=== PATIENT | female | born 1950 | race Caucasian/White ===

== ENCOUNTER 2023-01-25 00:53 | Inpatient (IN) | payer BC, MEDICARE ==
[~2023-01-25] VITALS: Ht 167.6 cm; Wt 59.9 kg
[2023-01-25] MEDS ORDERED: FLUO20CA36 PO (00:59)
[2023-01-25] MEDS ORDERED: ONDANSETRON 4 MG/2 ML VIAL ONE (01:08)
[2023-01-25] MEDS ORDERED: HYDROMORPHONE 1 MG/1 ML DISP.SYRIN ONE ×3 (01:09→03:57)
[2023-01-25] MEDS ORDERED: ONDANSETRON 4 MG/2 ML VIAL IV ONE (01:15)
[2023-01-25] MEDS ORDERED: HYDROMORPHONE 1 MG/1 ML DISP.SYRIN IV ONE ×2 (01:15→05:30)
[2023-01-25] MEDS ORDERED: MORPHINE SULFATE 2 MG/1 ML DISP.SYRIN ONE (09:10)
[2023-01-25] MEDS ORDERED: MORPHINE SULFATE 2 MG/1 ML DISP.SYRIN IV ONE (09:15)
[2023-01-25 11:11] VITALS: BP 106/40; TEMP 98.4; O2SAT 100
[2023-01-25] MEDS ORDERED: IV NORMAL SALINE 500 ML IV ONE ×2 (11:15→14:30)
[2023-01-25] MEDS ORDERED: ACETAMINOPHEN 325 MG TABLET PO PRN (11:15)
[2023-01-25] MEDS ORDERED: REMEDY ESSENTIAL ZINC PASTE 113 GM TP PRN (11:15)
[2023-01-25] MEDS ORDERED: FENTANYL CITRATE 100 MCG/2 ML AMPUL IV ONE (11:15)
[2023-01-25] MEDS ORDERED: ONDANSETRON 4 MG/2 ML VIAL IV PRN (11:15)
[2023-01-25 11:40] LABS: BASOPHILS # (AUTO) 0.2 K/UL (0.0-0.2); BASOPHILS % (AUTO) 1.5 % (0.0-2.0); EOSINOPHILS % (AUTO) 0.2 % (0.0-7.0); HEMATOCRIT 38.7 % (31.2-41.9); HEMOGLOBIN 12.6 g/dL (10.9-14.3); LYMPHOCYTES # (AUTO) 0.5 K/uL (0.8-4.8); LYMPHOCYTES % (AUTO) 4.8 % (20.5-51.5); MEAN CORPUSCULAR HGB CONC 33 g/dL (32.3-35.6); MEAN CORPUSCULAR VOLUME 94.7 fL (75.5-95.3); MONOCYTES # (AUTO) 0.7 K/uL (0.1-1.30); MONOCYTES % (AUTO) 6.4 % (0.0-11.0); NEUTROPHILS # (AUTO) 9.3 K/uL (1.8-8.9); NEUTROPHILS % (AUTO) 87.1 % (38.5-71.5); PLATELET COUNT (AUTO) 237 K/uL (179-408); RED BLOOD CELL COUNT(AUTO) 4.08 MIL/uL (3.63-4.92); WHITE BLOOD COUNT (AUTO) 10.7 K/uL (3.8-11.8)
[2023-01-25 11:42] LABS: DIFFERENTIAL COMMENT 1
[2023-01-25 11:43] LABS: CALCIUM 10.2 mg/dL (8.5-10.1); POTASSIUM 4.9 mmol/L (3.5-5.1)
[2023-01-25 11:48] LABS: ALBUMIN 3.6 g/dL (3.4-5.0); BILIRUBIN,TOTAL 0.4 mg/dL (0.2-1.0); MAGNESIUM 2.5 mg/dL (1.8-2.4); TOTAL PROTEIN, SERUM 6.9 g/dL (6.4-8.2)
[2023-01-25] MEDS ORDERED: IV LACTATED RINGERS SOLUTION 1,000 ML IV PRN (12:00)
[2023-01-25] MEDS ORDERED: LAMO25TA10 PO ×2 (13:56)
[2023-01-25] MEDS ORDERED: ARIP5TAB10 PO (13:56)
[2023-01-25] MEDS ORDERED: TRAZ-257 PO (13:56)
[2023-01-25] MEDS ORDERED: DEXT10TA19 PO (13:56)
[2023-01-25 15:07] VITALS: BP 106/45; TEMP 98.2; O2SAT 100
[2023-01-25 15:37] LABS: *BILIRUBIN,URIN NEGATIVE (NEGATIVE); *BLOOD, URINE NEGATIVE (NEGATIVE); *CLARITY,URINE CLEAR (CLEAR); *KETONES,URINE NEGATIVE (NEGATIVE); *PROTEIN,URINE NEGATIVE (NEGATIVE); *UROBILINOGEN,URINE 0.2 E.U./dl (NORMAL); LEUKOCYTE ESTERASE ,URINE NEGATIVE (NEGATIVE); NITRITE, URINE NEGATIVE (NEGATIVE); UGLUCOSE NEGATIVE (NEGATIVE)
[2023-01-25 15:41] LABS: *COLOR,URINE LIGHT YELLOW (YELLOW)
[2023-01-25] MEDS: MORPHINE SULFATE 2 MG/1 ML DISP.SYRIN IV PRN ×2 (16:14→21:44)
[2023-01-25 20:00] VITALS: BP 93/37; TEMP 97.5; O2SAT 100
[2023-01-25] MEDS: TRAZODONE 100 MG TABLET PO SCH ×2 (20:48→20:53)
[2023-01-25] MEDS: ARIPIPRAZOLE 5 MG TABLET PO SCH (20:48)
[2023-01-25] MEDS: LAMOTRIGINE 25 MG TABLET PO SCH (20:48)
[2023-01-25 21:00] VITALS: BP 108/68; O2SAT 100
[2023-01-26] VITALS (12 sets, daily range): BP systolic 93–114; BP diastolic 28–50; TEMP 97.5–98.5; O2SAT 96–100
[2023-01-26] MEDS: MORPHINE SULFATE 2 MG/1 ML DISP.SYRIN IV PRN ×2 (02:49→08:41)
[2023-01-26 06:17] LABS: BASOPHILS % (AUTO) 0.1 % (0.0-2.0); EOSINOPHILS # (AUTO) 0.1 K/uL (0.0-0.7); EOSINOPHILS % (AUTO) 1.1 % (0.0-7.0); HEMATOCRIT 33.6 % (31.2-41.9); HEMOGLOBIN 11.4 g/dL (10.9-14.3); LYMPHOCYTES # (AUTO) 1.1 K/uL (0.8-4.8); MEAN CORPUSCULAR HEMOGLOBIN 31.8 uug (24.7-32.8); MEAN CORPUSCULAR HGB CONC 34 g/dL (32.3-35.6); MEAN CORPUSCULAR VOLUME 93.4 fL (75.5-95.3); MONOCYTES # (AUTO) 0.6 K/uL (0.1-1.30); MONOCYTES % (AUTO) 8.7 % (0.0-11.0); NEUTROPHILS # (AUTO) 5.3 K/uL (1.8-8.9); NEUTROPHILS % (AUTO) 75.1 % (38.5-71.5); PLATELET COUNT (AUTO) 183 K/uL (179-408); RED BLOOD CELL COUNT(AUTO) 3.59 MIL/uL (3.63-4.92); RED CELL DISTRIBUTION WIDTH 13.5 % (12.3-17.7)
[2023-01-26 06:21] LABS: DIFFERENTIAL COMMENT 1
[2023-01-26 06:37] LABS: CALCIUM 8.7 mg/dL (8.5-10.1); CARBON DIOXIDE 35 mmol/L (21-32); CHLORIDE 106 mmol/L (98-107); CHOLESTEROL 190 mg/dL (<200); CREATININE 0.7 mg/dL (0.6-1.3); GLUCOSE 104 mg/dL (74-106); HDL CHOLESTEROL 73 mg/dL (40-60); MAGNESIUM 2.1 mg/dL (1.8-2.4); POTASSIUM 4.2 mmol/L (3.5-5.1); SODIUM SERUM 135 mmol/L (136-145); TRIGLYCERIDES 71 MG/DL (30-150); UREA NITROGEN, BLOOD 15 mg/dL (7-18)
[2023-01-26] MEDS: LAMOTRIGINE 25 MG TABLET PO SCH ×2 (08:45→21:06)
[2023-01-26] MEDS: FLUOXETINE HCL 20 MG CAPSULE PO SCH (09:00)
[2023-01-26] MEDS ORDERED: VANCOMYCIN 1000 MG VIAL ONE (13:19)
[2023-01-26] MEDS ORDERED: CEFAZOLIN 1 G VIAL ONE (14:00)
[2023-01-26] MEDS ORDERED: PROPOFOL 200 MG/20 ML BOTTLE ONE (14:00)
[2023-01-26] MEDS ORDERED: ONDANSETRON 4 MG/2 ML VIAL ONE (14:00)
[2023-01-26] MEDS ORDERED: DEXAMETHASONE SOD PHOSPHATE 4 MG INJ ONE (14:00)
[2023-01-26] MEDS ORDERED: FENTANYL CITRATE 100 MCG/2 ML AMPUL ONE (14:12)
[2023-01-26] MEDS ORDERED: MIDAZOLAM HCL 2 MG/2 ML VIAL ONE (14:13)
[2023-01-26] MEDS ORDERED: BUPIVACAINE PF 0.5% 30 ML VIAL ONE (14:19)
[2023-01-26] MEDS ORDERED: IV D5W-0.45% NS +20 KCL 1,000 ML IV ONE (16:03)
[2023-01-26] MEDS: MORPHINE SULFATE 4 MG/1 ML DISP.SYRIN IV PRN (19:08)
[2023-01-26] MEDS: ARIPIPRAZOLE 5 MG TABLET PO SCH (21:06)
[2023-01-26] MEDS: TRAZODONE 100 MG TABLET PO SCH ×2 (21:06→21:10)
[2023-01-26] MEDS: CEFAZOLIN 1 G in IV DEXTROSE 5% 50 ML IV SCH (22:47)
[2023-01-27] VITALS (9 sets, daily range): BP systolic 95–109; BP diastolic 32–44; TEMP 98.2–100; O2SAT 96–99
[2023-01-27] MEDS: HYDROCODONE/APAP 10-325 MG TABLET PO PRN ×2 (00:27→09:19)
[2023-01-27] MEDS: IV D5W-0.45% NS +20 KCL 1,000 ML IV PRN ×2 (00:51→14:34)
[2023-01-27] MEDS: MORPHINE SULFATE 4 MG/1 ML DISP.SYRIN IV PRN (01:11)
[2023-01-27] MEDS: CEFAZOLIN 1 G in IV DEXTROSE 5% 50 ML IV SCH (06:25)
[2023-01-27 06:40] LABS: BASOPHILS # (AUTO) 0.2 K/UL (0.0-0.2); BASOPHILS % (AUTO) 2.5 % (0.0-2.0); EOSINOPHILS % (AUTO) 0.2 % (0.0-7.0); HEMATOCRIT 30.3 % (31.2-41.9); HEMOGLOBIN 10.2 g/dL (10.9-14.3); LYMPHOCYTES % (AUTO) 11.9 % (20.5-51.5); MEAN CORPUSCULAR HEMOGLOBIN 31.5 uug (24.7-32.8); MEAN CORPUSCULAR HGB CONC 34 g/dL (32.3-35.6); MEAN CORPUSCULAR VOLUME 93.6 fL (75.5-95.3); MONOCYTES # (AUTO) 0.9 K/uL (0.1-1.30); MONOCYTES % (AUTO) 10.4 % (0.0-11.0); NEUTROPHILS # (AUTO) 6.1 K/uL (1.8-8.9); PLATELET COUNT (AUTO) 174 K/uL (179-408); RED BLOOD CELL COUNT(AUTO) 3.24 MIL/uL (3.63-4.92); RED CELL DISTRIBUTION WIDTH 12.9 % (12.3-17.7); WHITE BLOOD COUNT (AUTO) 8.2 K/uL (3.8-11.8)
[2023-01-27 06:59] LABS: DIFFERENTIAL COMMENT 1
[2023-01-27] MEDS: FLUOXETINE HCL 20 MG CAPSULE PO SCH (09:19)
[2023-01-27] MEDS: LAMOTRIGINE 25 MG TABLET PO SCH ×2 (09:24→21:00)
[2023-01-27 11:30] LABS: CALCIUM 8.1 mg/dL (8.5-10.1); CARBON DIOXIDE 31 mmol/L (21-32); CHLORIDE 102 mmol/L (98-107); CREATININE 0.5 mg/dL (0.6-1.3); GLUCOSE 133 mg/dL (74-106); MAGNESIUM 1.9 mg/dL (1.8-2.4); PHOSPHOROUS 2.8 mg/dL (2.5-4.9); POTASSIUM 4.1 mmol/L (3.5-5.1); SODIUM SERUM 137 mmol/L (136-145); UREA NITROGEN, BLOOD 11 mg/dL (7-18)
[2023-01-27] MEDS: ARIPIPRAZOLE 5 MG TABLET PO SCH (21:00)
[2023-01-27] MEDS: TRAZODONE 100 MG TABLET PO SCH ×2 (21:01→23:36)
[2023-01-28] VITALS (8 sets, daily range): BP systolic 91–106; BP diastolic 22–36; TEMP 98.3–99.5; O2SAT 92–100
[2023-01-28] MEDS: IV D5W-0.45% NS +20 KCL 1,000 ML IV PRN (05:30)
[2023-01-28 07:16] LABS: BASOPHILS % (AUTO) 0.2 % (0.0-2.0); EOSINOPHILS # (AUTO) 0.1 K/uL (0.0-0.7); HEMATOCRIT 27.5 % (31.2-41.9); HEMOGLOBIN 9.4 g/dL (10.9-14.3); LYMPHOCYTES # (AUTO) 1.6 K/uL (0.8-4.8); MEAN CORPUSCULAR HEMOGLOBIN 31.9 uug (24.7-32.8); MEAN CORPUSCULAR HGB CONC 34 g/dL (32.3-35.6); MEAN CORPUSCULAR VOLUME 93.5 fL (75.5-95.3); MONOCYTES % (AUTO) 13.4 % (0.0-11.0); NEUTROPHILS % (AUTO) 64.4 % (38.5-71.5); PLATELET COUNT (AUTO) 166 K/uL (179-408); RED BLOOD CELL COUNT(AUTO) 2.94 MIL/uL (3.63-4.92); RED CELL DISTRIBUTION WIDTH 13.1 % (12.3-17.7); WHITE BLOOD COUNT (AUTO) 7.7 K/uL (3.8-11.8)
[2023-01-28 07:24] LABS: DIFFERENTIAL COMMENT 1
[2023-01-28 07:37] LABS: CALCIUM 8.8 mg/dL (8.5-10.1); CARBON DIOXIDE 33 mmol/L (21-32); CHLORIDE 104 mmol/L (98-107); CREATININE 0.6 mg/dL (0.6-1.3); GLUCOSE 129 mg/dL (74-106); POTASSIUM 4.3 mmol/L (3.5-5.1); SODIUM SERUM 139 mmol/L (136-145); UREA NITROGEN, BLOOD 9 mg/dL (7-18)
[2023-01-28 08:00] LABS: MAGNESIUM 2.2 mg/dL (1.8-2.4); PHOSPHOROUS 1.9 mg/dL (2.5-4.9)
[2023-01-28] MEDS: FLUOXETINE HCL 20 MG CAPSULE PO SCH (08:38)
[2023-01-28] MEDS: LAMOTRIGINE 25 MG TABLET PO SCH ×2 (08:38→20:34)
[2023-01-28] MEDS ORDERED: IV NS 1000 ML 1,000 ML IV ONE (09:45)
[2023-01-28] MEDS ORDERED: DEXT10TA7 PO (12:04)
[2023-01-28] MEDS: HYDROCODONE/APAP 10-325 MG TABLET PO PRN (13:53)
[2023-01-28] MEDS ORDERED: NEUTRA PHOS PACKET PO ONE (15:45)
[2023-01-28] MEDS: ENOXAPARIN SODIUM 40 MG/0.4 ML DISP.SYRIN SQ SCH (20:33)
[2023-01-28] MEDS: ARIPIPRAZOLE 5 MG TABLET PO SCH (20:34)
[2023-01-28] MEDS: TRAZODONE 100 MG TABLET PO SCH ×2 (20:34→21:22)
[2023-01-29] VITALS (7 sets, daily range): BP systolic 94–111; BP diastolic 38–50; TEMP 98–99.5; O2SAT 94–97
[2023-01-29 06:45] LABS: BASOPHILS # (AUTO) 0.1 K/UL (0.0-0.2); BASOPHILS % (AUTO) 2.2 % (0.0-2.0); EOSINOPHILS # (AUTO) 0.1 K/uL (0.0-0.7); EOSINOPHILS % (AUTO) 1.7 % (0.0-7.0); HEMATOCRIT 23.9 % (31.2-41.9); HEMOGLOBIN 8.1 g/dL (10.9-14.3); LYMPHOCYTES # (AUTO) 1.2 K/uL (0.8-4.8); LYMPHOCYTES % (AUTO) 19.2 % (20.5-51.5); MEAN CORPUSCULAR HEMOGLOBIN 31.5 uug (24.7-32.8); MEAN CORPUSCULAR HGB CONC 34 g/dL (32.3-35.6); MEAN CORPUSCULAR VOLUME 93.2 fL (75.5-95.3); MONOCYTES # (AUTO) 0.7 K/uL (0.1-1.30); MONOCYTES % (AUTO) 10.4 % (0.0-11.0); NEUTROPHILS # (AUTO) 4.3 K/uL (1.8-8.9); NEUTROPHILS % (AUTO) 66.5 % (38.5-71.5); PLATELET COUNT (AUTO) 158 K/uL (179-408); RED BLOOD CELL COUNT(AUTO) 2.56 MIL/uL (3.63-4.92); WHITE BLOOD COUNT (AUTO) 6.5 K/uL (3.8-11.8)
[2023-01-29 07:04] LABS: DIFFERENTIAL COMMENT 1
[2023-01-29 07:56] LABS: CALCIUM 8.3 mg/dL (8.5-10.1); CARBON DIOXIDE 30 mmol/L (21-32); CHLORIDE 104 mmol/L (98-107); CREATININE 0.5 mg/dL (0.6-1.3); GLUCOSE 103 mg/dL (74-106); MAGNESIUM 1.7 mg/dL (1.8-2.4); POTASSIUM 3.7 mmol/L (3.5-5.1); SODIUM SERUM 137 mmol/L (136-145); UREA NITROGEN, BLOOD 8 mg/dL (7-18)
[2023-01-29] MEDS: HYDROCODONE/APAP 10-325 MG TABLET PO PRN (09:01)
[2023-01-29] MEDS: FLUOXETINE HCL 20 MG CAPSULE PO SCH (09:01)
[2023-01-29] MEDS: LAMOTRIGINE 25 MG TABLET PO SCH ×2 (09:01→21:26)
[2023-01-29] MEDS ORDERED: MAGNESIUM OXIDE 400 MG TABLET PO ONE (09:30)
[2023-01-29] MEDS ORDERED: ENOX40DI SQ (11:53)
[2023-01-29] MEDS ORDERED: HYDR-3972 PO (11:53)
[2023-01-29] MEDS ORDERED: NEUTRA PHOS PACKET PO ONE (15:30)
[2023-01-29] MEDS: TRAZODONE 100 MG TABLET PO SCH ×2 (21:26→21:49)
[2023-01-29] MEDS: ARIPIPRAZOLE 5 MG TABLET PO SCH (21:26)
[2023-01-29] MEDS: ENOXAPARIN SODIUM 40 MG/0.4 ML DISP.SYRIN SQ SCH (21:27)
[2023-01-30] VITALS (9 sets, daily range): BP systolic 100–125; BP diastolic 38–47; TEMP 98.2–98.7; O2SAT 93–97
[2023-01-30 07:35] LABS: CALCIUM 8.5 mg/dL (8.5-10.1); CARBON DIOXIDE 31 mmol/L (21-32); CHLORIDE 103 mmol/L (98-107); CREATININE 0.5 mg/dL (0.6-1.3); GLUCOSE 104 mg/dL (74-106); PHOSPHOROUS 2.4 mg/dL (2.5-4.9); POTASSIUM 3.5 mmol/L (3.5-5.1); SODIUM SERUM 141 mmol/L (136-145); UREA NITROGEN, BLOOD 8 mg/dL (7-18)
[2023-01-30] MEDS: ENSURE ENLIVE (VAN) 240 ML LIQUID PO SCH (08:56)
[2023-01-30] MEDS: LAMOTRIGINE 25 MG TABLET PO SCH ×2 (08:56→21:06)
[2023-01-30] MEDS: FLUOXETINE HCL 20 MG CAPSULE PO SCH (08:56)
[2023-01-30] MEDS: AMPHETAMINE SALT 10 MG TOP SCH ×3 (09:41→14:16)
[2023-01-30] MEDS ORDERED: NEUTRA PHOS PACKET PO ONE (16:00)
[2023-01-30] MEDS: ARIPIPRAZOLE 5 MG TABLET PO SCH (21:06)
[2023-01-30] MEDS: TRAZODONE 100 MG TABLET PO SCH ×2 (21:07→22:23)
[2023-01-30] MEDS: ENOXAPARIN SODIUM 40 MG/0.4 ML DISP.SYRIN SQ SCH (21:09)
[2023-01-31 04:05] VITALS: BP 117/51; TEMP 98.4; O2SAT 96
[2023-01-31 07:08] LABS: CALCIUM 8.6 mg/dL (8.5-10.1); CARBON DIOXIDE 29 mmol/L (21-32); CHLORIDE 103 mmol/L (98-107); CREATININE 0.5 mg/dL (0.6-1.3); GLUCOSE 102 mg/dL (74-106); PHOSPHOROUS 3.3 mg/dL (2.5-4.9); POTASSIUM 3.6 mmol/L (3.5-5.1); SODIUM SERUM 139 mmol/L (136-145); UREA NITROGEN, BLOOD 11 mg/dL (7-18)
[2023-01-31] MEDS: LAMOTRIGINE 25 MG TABLET PO SCH ×2 (08:09→20:47)
[2023-01-31] MEDS: FLUOXETINE HCL 20 MG CAPSULE PO SCH (08:10)
[2023-01-31] MEDS: ENSURE ENLIVE (VAN) 240 ML LIQUID PO SCH (08:10)
[2023-01-31] MEDS: AMPHETAMINE SALT 10 MG TOP SCH ×2 (09:28→14:04)
[2023-01-31 11:47] VITALS: BP 96/44; TEMP 97.6; O2SAT 95
[2023-01-31] MEDS: HYDROCODONE/APAP 10-325 MG TABLET PO PRN (14:49)
[2023-01-31 16:00] VITALS: BP 102/42; TEMP 98.5; O2SAT 94
[2023-01-31 20:00] VITALS: BP 95/32; TEMP 98; O2SAT 93
[2023-01-31] MEDS: ARIPIPRAZOLE 5 MG TABLET PO SCH (20:46)
[2023-01-31] MEDS: TRAZODONE 100 MG TABLET PO SCH ×2 (20:47→21:25)
[2023-01-31] MEDS: ENOXAPARIN SODIUM 40 MG/0.4 ML DISP.SYRIN SQ SCH (20:48)
[2023-01-31 22:21] VITALS: O2SAT 95
[2023-02-01] VITALS: BP 97/42; TEMP 98.1; O2SAT 95
[2023-02-01 04:00] VITALS: BP 93/46; TEMP 98.3; O2SAT 94
[2023-02-01] MEDS: LAMOTRIGINE 25 MG TABLET PO SCH ×2 (08:51→20:29)
[2023-02-01] MEDS: FLUOXETINE HCL 20 MG CAPSULE PO SCH (08:51)
[2023-02-01] MEDS: ENSURE ENLIVE (VAN) 240 ML LIQUID PO SCH (08:52)
[2023-02-01] MEDS: HYDROCODONE/APAP 10-325 MG TABLET PO PRN ×4 (08:52→21:54)
[2023-02-01] MEDS: AMPHETAMINE SALT 10 MG TOP SCH ×2 (09:03→13:33)
[2023-02-01] MEDS: ENOXAPARIN SODIUM 40 MG/0.4 ML DISP.SYRIN SQ SCH (10:17)
[2023-02-01 12:40] VITALS: BP 100/45; TEMP 97.3; O2SAT 98
[2023-02-01 15:40] VITALS: BP 111/49; TEMP 97.9; O2SAT 99
[2023-02-01] MEDS: TRAZODONE 100 MG TABLET PO SCH ×2 (20:29→21:30)
[2023-02-01] MEDS: ARIPIPRAZOLE 5 MG TABLET PO SCH (20:29)
[2023-02-01 20:59] VITALS: O2SAT 97
[2023-02-01 22:28] VITALS: BP 107/47; TEMP 97.8; O2SAT 97
[2023-02-02] MEDS: HYDROCODONE/APAP 10-325 MG TABLET PO PRN ×3 (04:06→20:00)
[2023-02-02 05:26] VITALS: BP 146/70; TEMP 98; O2SAT 99
[2023-02-02 05:55] LABS: BASOPHILS % (AUTO) 0.7 % (0.0-2.0); EOSINOPHILS # (AUTO) 0.3 K/uL (0.0-0.7); EOSINOPHILS % (AUTO) 3.5 % (0.0-7.0); HEMOGLOBIN 8.2 g/dL (10.9-14.3); LYMPHOCYTES # (AUTO) 1.8 K/uL (0.8-4.8); LYMPHOCYTES % (AUTO) 24.1 % (20.5-51.5); MEAN CORPUSCULAR HEMOGLOBIN 31.7 uug (24.7-32.8); MEAN CORPUSCULAR HGB CONC 34 g/dL (32.3-35.6); MEAN CORPUSCULAR VOLUME 92.2 fL (75.5-95.3); MONOCYTES % (AUTO) 13.7 % (0.0-11.0); NEUTROPHILS # (AUTO) 4.2 K/uL (1.8-8.9); PLATELET COUNT (AUTO) 301 K/uL (179-408); RED CELL DISTRIBUTION WIDTH 13.3 % (12.3-17.7); WHITE BLOOD COUNT (AUTO) 7.3 K/uL (3.8-11.8)
[2023-02-02 06:21] LABS: CALCIUM 8.7 mg/dL (8.5-10.1); CREATININE 0.7 mg/dL (0.6-1.3); PHOSPHOROUS 3.8 mg/dL (2.5-4.9); POTASSIUM 3.7 mmol/L (3.5-5.1)
[2023-02-02 06:48] LABS: DIFFERENTIAL COMMENT 1
[2023-02-02] MEDS: ENSURE ENLIVE (VAN) 240 ML LIQUID PO SCH (09:00)
[2023-02-02] MEDS: FLUOXETINE HCL 20 MG CAPSULE PO SCH (09:17)
[2023-02-02] MEDS: LAMOTRIGINE 25 MG TABLET PO SCH ×2 (09:17→20:01)
[2023-02-02] MEDS: AMPHETAMINE SALT 10 MG TOP SCH ×2 (09:19→13:04)
[2023-02-02] MEDS: ENOXAPARIN SODIUM 40 MG/0.4 ML DISP.SYRIN SQ SCH (09:19)
[2023-02-02] MEDS ORDERED: HYDROCODONE/APAP 10-325 MG TABLET PO PRN ×2 (09:30)
[2023-02-02] MEDS ORDERED: TRAZODONE 100 MG TABLET PO PRN (11:30)
[2023-02-02 12:00] VITALS: BP 82/40; TEMP 97.6; O2SAT 97
[2023-02-02 14:30] VITALS: BP 103/41
[2023-02-02 16:01] VITALS: BP 118/52; TEMP 98.1; O2SAT 97
[2023-02-02 16:36] VITALS: O2SAT 97
[2023-02-02] MEDS: ARIPIPRAZOLE 5 MG TABLET PO SCH (20:00)
[2023-02-02] MEDS: TRAZODONE 100 MG TABLET PO SCH (20:00)
[2023-02-03] MEDS: HYDROCODONE/APAP 10-325 MG TABLET PO PRN ×3 (04:51→21:46)
[2023-02-03 05:05] VITALS: BP 117/54; TEMP 97.5; O2SAT 96
[2023-02-03] MEDS: FLUOXETINE HCL 20 MG CAPSULE PO SCH (08:20)
[2023-02-03] MEDS: LAMOTRIGINE 25 MG TABLET PO SCH ×2 (08:20→21:24)
[2023-02-03] MEDS: ENOXAPARIN SODIUM 40 MG/0.4 ML DISP.SYRIN SQ SCH (08:21)
[2023-02-03] MEDS: ENSURE ENLIVE (VAN) 240 ML LIQUID PO SCH (08:28)
[2023-02-03] MEDS: AMPHETAMINE SALT 10 MG TOP SCH ×2 (09:48→14:52)
[2023-02-03 11:06] VITALS: BP 96/45; TEMP 97.8; O2SAT 98
[2023-02-03 16:18] VITALS: BP 85/47; TEMP 98.1; O2SAT 97
[2023-02-03 20:00] VITALS: BP 97/41; TEMP 97.1; O2SAT 97
[2023-02-03] MEDS: TRAZODONE 100 MG TABLET PO SCH ×2 (21:24→21:50)
[2023-02-03] MEDS: ARIPIPRAZOLE 5 MG TABLET PO SCH (21:24)
[2023-02-04 07:07] VITALS: BP 118/70; TEMP 97.2
[2023-02-04] MEDS: FLUOXETINE HCL 20 MG CAPSULE PO SCH (08:01)
[2023-02-04] MEDS: LAMOTRIGINE 25 MG TABLET PO SCH ×2 (08:01→20:34)
[2023-02-04] MEDS: ENOXAPARIN SODIUM 40 MG/0.4 ML DISP.SYRIN SQ SCH (08:03)
[2023-02-04] MEDS: ENSURE ENLIVE (VAN) 240 ML LIQUID PO SCH (08:03)
[2023-02-04] MEDS: AMPHETAMINE SALT 10 MG TOP SCH ×2 (09:31→14:21)
[2023-02-04 11:33] VITALS: BP_SYST 111; BP_DIAS 45; BP_DIAS 48; TEMP 97.9; O2SAT 98
[2023-02-04 16:00] VITALS: BP 111/42; TEMP 97.6; O2SAT 98
[2023-02-04 20:00] VITALS: BP 109/40; TEMP 98.2; O2SAT 98
[2023-02-04] MEDS: ARIPIPRAZOLE 5 MG TABLET PO SCH (20:34)
[2023-02-04 20:40] VITALS: O2SAT 97
[2023-02-04] MEDS: HYDROCODONE/APAP 10-325 MG TABLET PO PRN (21:01)
[2023-02-04] MEDS: TRAZODONE 100 MG TABLET PO SCH (22:52)
[2023-02-05 04:00] VITALS: BP 101/42; TEMP 97.7; O2SAT 96
[2023-02-05 07:33] VITALS: BP 102/40
[2023-02-05] MEDS: ENSURE ENLIVE (VAN) 240 ML LIQUID PO SCH (08:01)
[2023-02-05] MEDS: LAMOTRIGINE 25 MG TABLET PO SCH ×2 (08:02→20:06)
[2023-02-05] MEDS: FLUOXETINE HCL 20 MG CAPSULE PO SCH (08:02)
[2023-02-05] MEDS: ENOXAPARIN SODIUM 40 MG/0.4 ML DISP.SYRIN SQ SCH (08:02)
[2023-02-05] MEDS: AMPHETAMINE SALT 10 MG TOP SCH ×2 (09:04→13:44)
[2023-02-05 12:00] VITALS: BP 97/41; TEMP 98.1; O2SAT 97
[2023-02-05 16:00] VITALS: BP 106/42; TEMP 98.4; O2SAT 98
[2023-02-05] MEDS: ARIPIPRAZOLE 5 MG TABLET PO SCH (20:05)
[2023-02-05] MEDS: HYDROCODONE/APAP 10-325 MG TABLET PO PRN (20:05)
[2023-02-05 20:17] VITALS: BP 122/33; TEMP 98.6; O2SAT 100
[2023-02-05 20:54] VITALS: O2SAT 97
[2023-02-06] MEDS: HYDROCODONE/APAP 10-325 MG TABLET PO PRN (04:28)
[2023-02-06 04:32] VITALS: BP 103/43; TEMP 98.1
[2023-02-06] MEDS ORDERED: HYDROCODONE/APAP 5-325MG TABLET PO PRN (07:45)
[2023-02-06 08:08] VITALS: BP 97/46; TEMP 97.8; O2SAT 96
[2023-02-06] MEDS: LAMOTRIGINE 25 MG TABLET PO SCH (08:58)
[2023-02-06] MEDS: FLUOXETINE HCL 20 MG CAPSULE PO SCH (08:58)
[2023-02-06] MEDS: ENOXAPARIN SODIUM 40 MG/0.4 ML DISP.SYRIN SQ SCH (08:59)
[2023-02-06] MEDS: ENSURE ENLIVE (VAN) 240 ML LIQUID PO SCH (09:04)
[2023-02-06] MEDS: AMPHETAMINE SALT 10 MG TOP SCH ×2 (10:05→14:01)
== END 2023-02-06 15:10 | disposition home health service (06) | DRG 956 ==
LOC: ER 00:57 → MEDSURG3 09:53 → TELE3 15:20 → MEDSURG3 01-28 11:00
PROVIDERS: ADMIT Nurse Practitioner Family; ATTEND Nurse Practitioner Family
PROC: 0SRR0JA Replacement of Right Hip Joint, Femoral Surface with Synthetic Substitute, Uncemented, Open Approach (ICD-10-PCS; principal; 2023-01-26)
DX: S72.011A Unspecified intracapsular fracture of right femur, initial encounter for closed fracture (principal); S32.301A Unspecified fracture of right ilium, initial encounter for closed fracture; S32.501A Unspecified fracture of right pubis, initial encounter for closed fracture; S72.031A Displaced midcervical fracture of right femur, initial encounter for closed fracture; W01.0XXA Fall on same level from slipping, tripping and stumbling without subsequent striking against object, initial encounter; L89.151 Pressure ulcer of sacral region, stage 1; Y92.89 Other specified places as the place of occurrence of the external cause; M61.9 Calcification and ossification of muscle, unspecified; F32.9 Major depressive disorder, single episode, unspecified; T40.605A Adverse effect of unspecified narcotics, initial encounter; Y92.238 Other place in hospital as the place of occurrence of the external cause; R09.02 Hypoxemia; Z87.891 Personal history of nicotine dependence; Z80.1 Family history of malignant neoplasm of trachea, bronchus and lung; Z98.51 Tubal ligation status; E86.0 Dehydration; M16.11 Unilateral primary osteoarthritis, right hip; M19.071 Primary osteoarthritis, right ankle and foot
CPT/HCPCS: 36415; 71045; 73502; 73700; 83735; 84100; 85025; 85610; 93005; 93307; A4606; A4649; A4663; A6209; A6213; G0378; J0690; J1100; J1170; J1650; J2250; J2270; J2405; J3010; J3370; J3490; J7040; J7120